=== PATIENT | female | born 1960 | race American Indian/Alaskan Native ===

== ENCOUNTER 2018-07-01 18:36 | Outpatient (CLI) | payer BC, MEDICARE | END 2018-07-01 18:37 | disposition home or self-care (01) | LOC: C.SLEEP 18:37 | DX: G47.33 Obstructive sleep apnea (adult) (pediatric) (principal) ==

== ENCOUNTER 2018-07-29 07:17 | Day surgery (SDC) | payer BC, MEDICARE ==
[2018-07-29 08:00] VITALS: BMI 36.3
[2018-07-29] MEDS ORDERED: Propofol 10 mg/ml Inj (20 ML) ONE (08:23)
[2018-07-29] MEDS ORDERED: Albuterol-Ipratrop 3 mg / 0.5 (3 ml) UD INH STA (08:26)
[2018-07-29] MEDS ORDERED: Lactated Ringer's 500 ML IV SCH (08:30)
--- NOTE | 2018-07-29 09:11 | CP.SDSHP ---
Same Day Surgery H & P - History Proposed Procedure: EGD/COLONSCOPY Pre-Op Diagnosis: SEE NOTES - Previous Medical/Surgical History Cardiac: Hypertension, ASHD/CAD Pulmonary: Asthma Endocrine/Metabolic: Diabetes, Other Misc: Other Pain: 4.Moderate Pain - Allergies Allergies: Allergies No Known Allergies Allergy (Verified 12/02/14 10:11) - Physical Exam General Appearance: N Vital Signs: Vital Signs 07/29/18 07/29/18 07:46 09:04 Temperature 98.4 F 98.4 F Pulse Rate 68 68 Respiratory 18 18 Rate Blood Pressure 141/62 141/62 O2 Sat by Pulse 98 98 Oximetry Heart: Other Lungs: Other GI: Other - {Optional Preform as Required} Breast: WNL Abdomen: Other Rectal: Other Integument: WNL : WNL Ortho: Other ENT: WNL - Impression Pt. Evaluated Today:Candidate for Anesthesia & Procedure: Yes - Date & Time Time: 09:11 Short Stay Discharge - Short Stay Discharge Admitting Diagnosis/Reason for Visit: DYSPEPSIA Disposition: HOME/ ROUTINE
[2018-07-29] MEDS ORDERED: Belladonna-Phenobarbital PO STA (09:22)
[2018-07-29 10:11] VITALS: TEMP 97.8
[2018-07-29 11:22] VITALS: BP 125/67; PULSE 65; RESP 18; O2SAT 99
== END 2018-07-29 11:18 | disposition home or self-care (01) ==
LOC: C.ENDO 07:17
PROVIDERS: ATTEND Specialist
DX: K30 Functional dyspepsia (principal); Z12.11 Encounter for screening for malignant neoplasm of colon; D12.2 Benign neoplasm of ascending colon; K57.30 Diverticulosis of large intestine without perforation or abscess without bleeding; K64.8 Other hemorrhoids; R10.13 Epigastric pain; K44.9 Diaphragmatic hernia without obstruction or gangrene; K29.70 Gastritis, unspecified, without bleeding; B96.89 Other specified bacterial agents as the cause of diseases classified elsewhere
CPT/HCPCS: 43239; 45381; 82948; 88305; 88342; 94640; J0696; J2001; J2704; J3010; J7120